=== PATIENT | male | born 1990 ===

== ENCOUNTER 2018-07-02 13:33 | Emergency (ER) | payer OTHER ==
[2018-07-02 13:43] VITALS: BP 124/72; PULSE 66; RESP 16; TEMP 97.7; O2SAT 98
[2018-07-02] MEDS ORDERED: Erythromycin 0.5% Ophth Oint 1 APPLIC/3.5 G OD STA (14:03)
--- NOTE | 2018-07-02 14:10 | C.PDOC ---
History Of Present Illness 27 year old M with no known history presented with complaint of swelling on his right eye lids. Pt states that he's had this for the past four months and it's not getting any better. He denies any blurry vision, fever or chills. Time Seen by Provider: 07/02/18 13:57 Chief Complaint (Nursing): Eye Problem History Per: Patient History/Exam Limitations: no limitations Onset/Duration Of Symptoms: Days (x4 months ) Current Symptoms Are (Timing): Still Present Past Medical History Reviewed: Historical Data, Nursing Documentation, Vital Signs Vital Signs: Last Vital Signs Temp 97.7 F 07/02/18 13:41 Pulse 66 07/02/18 13:41 Resp 16 07/02/18 13:41 BP 124/72 07/02/18 13:41 Pulse Ox 98 07/02/18 13:41 Family History: States: No Known Family Hx - Social History Hx Alcohol Use: No Hx Substance Use: No - Immunization History Hx Tetanus Toxoid Vaccination: No Hx Influenza Vaccination: No Hx Pneumococcal Vaccination: No Review Of Systems Except As Marked, All Systems Reviewed And Found Negative. Constitutional: Negative for: Fever, Other (change in vision/ blurry vision) Eyes: Positive for: Pain (right), Other (right eye swelling ) Physical Exam - Physical Exam Appears: Non-toxic, No Acute Distress Skin: Warm, Dry Head: Normacephalic Eye(s): right: Other (upper lid and lower lid: nodular lesion on mid upper and lower right eye lid; no discharge, no erythema; minor tenderness' ) Ear(s): Bilateral: Normal Oral Mucosa: Moist Throat: Normal Neck: Normal ROM, Supple Chest: Symmetrical Cardiovascular: Rhythm Regular Respiratory: Normal Breath Sounds Gastrointestinal/Abdominal: Soft, No Tenderness Extremity: Normal ROM (x4) Neurological/Psych: Oriented x3, Normal Speech, Normal Cognition, Normal Motor, Normal Sensation ED Course And Treatment O2 Sat by Pulse Oximetry: 98 (RA) Pulse Ox Interpretation: Normal Medical Decision Making Medical Decision Making: Impression: right eye stye Plans: -- erythromycin Reassess: Pt is resting comfortably and instructed to put warm compress x3/day with erythromycin and f/u with eye clinic Dr. Valladares in 1-2 days. Disposition - Disposition Referrals: Elias Valladares [Staff Provider] - Disposition: HOME/ ROUTINE Disposition Time: 14:11 Condition: GOOD Additional Instructions: take tylenol for pain, apply warm compress three times a day. Follow up with eye clinic as soon as possible. Prescriptions: Erythromycin 0.5% [Erythromycin] 1 applic OD Q4 #1 tube Instructions: Amando (Hordeolum) Forms: [employer] (Namibian) - Clinical Impression Clinical Impression: Amando - Scribe Statement The provider has reviewed the documentation as recorded by the Scribe Gamez Do Provider Attestation: All medical record entries made by the Scribe were at my direction and personally dictated by me. I have reviewed the chart and agree that the record accurately reflects my personal performance of the history, physical exam, medical decision making, and the department course for this patient. I have also personally directed, reviewed, and agree with the discharge instructions and disposition.
[2018-07-02] MEDS ORDERED: Erythromycin 0.5% Ophth Oint 1 APPLIC/3.5 G ONE (14:17)
[2018-07-02] MEDS ORDERED: Bacitracin 500 Units/gm Oint Foilpak UD ONE (14:29)
== END 2018-07-02 14:26 | disposition home or self-care (01) ==
LOC: C.ER 13:33
DX: H00.011 Hordeolum externum right upper eyelid (principal); H00.012 Hordeolum externum right lower eyelid

== ENCOUNTER 2018-09-13 17:35 | Emergency (ER) | payer OTHER ==
[2018-09-13 17:55] VITALS: BP 110/71; PULSE 63; RESP 17; TEMP 98.3; O2SAT 98
--- NOTE | 2018-09-13 18:15 | C.PDOC ---
History Of Present Illness Patient is a 28 year old male who presents to the ED c/o pain to his left lower molar that began yesterday. He denies fever, chills, neck pain, nausea, or vomiting. Time Seen by Provider: 09/13/18 17:54 Chief Complaint (Nursing): Dental Pain History Per: Patient History/Exam Limitations: no limitations Onset/Duration Of Symptoms: Days (1) Current Symptoms Are (Timing): Still Present Quality: Positive for: "Pain" Recent travel outside of the [place]: No Additional History Per: Patient Past Medical History Reviewed: Historical Data, Nursing Documentation, Vital Signs Vital Signs: Last Vital Signs Temp 98.3 F 09/13/18 17:54 Pulse 63 09/13/18 17:54 Resp 17 09/13/18 17:54 BP 110/71 09/13/18 17:54 Pulse Ox 98 09/13/18 17:54 Primary Care Provider: FAMILY PROVIDER,NO - Medical History PMH: No Chronic Diseases Surgical History: No Surg Hx Family History: States: No Known Family Hx - Social History Hx Alcohol Use: No Hx Substance Use: No - Immunization History Hx Tetanus Toxoid Vaccination: No Hx Influenza Vaccination: No Hx Pneumococcal Vaccination: No Review Of Systems Constitutional: Negative for: Fever, Chills ENT: Positive for: Other (pain to left lower molar ) Gastrointestinal: Negative for: Nausea, Vomiting Musculoskeletal: Negative for: Neck Pain Physical Exam - Physical Exam Appears: Well, Non-toxic, No Acute Distress Skin: Warm, Dry Head: Atraumatic, Normacephalic Eye(s): bilateral: Normal Inspection, PERRL, EOMI Nose: Normal Oral Mucosa: Moist Tongue: Normal Appearing Lips: Normal Appearing Teeth: Tender To Palpation, No Loose, Other (severe dental decay of left lower molar w/tenderness of tooth and gingiva, no fluctuance, no masses in floor of mouth) Throat: Normal Neck: Normal ROM, Other (no remarkable cervical lympadenopathy, no erythema ) Neurological/Psych: Oriented x3, Normal Speech, Normal Cranial Nerves ED Course And Treatment O2 Sat by Pulse Oximetry: 98 (on RA) Pulse Ox Interpretation: Normal Medical Decision Making Medical Decision Making: Plan: Motrin 800mg PO Penicillin 500mg PO Disposition Counseled Patient/Family Regarding: Diagnosis, Need For Followup - Disposition Disposition: HOME/ ROUTINE Disposition Time: 18:15 Condition: GOOD Additional Instructions: BETSEY KIDD, thank you for letting us take care of you today. Your provider was Yajaira Akhtar MD and you were treated for DENTAL PAIN. The emergency medical care you received today was directed at your acute symptoms. If you were prescribed any medication, please fill it and take as directed. It may take several days for your symptoms to resolve. Return to the Emergency Department if your symptoms worsen, do not improve, or if you have any other problems. Please contact your dentist or call one of the dentists/clinics you have been referred to that are listed on the Patient Visit Information form that is included in your discharge packet. Bring any paperwork you were given at discharge with you along with any medications you are taking to your follow up visit. Our treatment cannot replace ongoing medical care by a primary care provider outside of the emergency department. Thank you for allowing the [facility] team to be part of your care today. Prescriptions: Ibuprofen [Motrin Tab] 800 mg PO TID PRN #30 tab PRN Reason: Pain, Moderate (4-7) Penicillin VK [Penicillin VK Tab] 500 mg PO QID #28 tab Instructions: Tooth Abscess (DC), Dental Pain (DC) Forms: Gen Discharge Inst Macedonian, [employer] (Macedonian) Print Language: ECUADOREAN - POA Present On Arrival: None - Clinical Impression Clinical Impression: Dental infection, Dental caries - Scribe Statement The provider has reviewed the documentation as recorded by the Lan Newman All medical record entries made by the Martitaibsyeda were at my direction and personally dictated by me. I have reviewed the chart and agree that the record accurately reflects my personal performance of the history, physical exam, medical decision making, and the department course for this patient. I have also personally directed, reviewed, and agree with the discharge instructions and disposition.
== END 2018-09-13 18:38 | disposition home or self-care (01) ==
LOC: C.ER 17:35
DX: K04.7 Periapical abscess without sinus (principal); K02.9 Dental caries, unspecified